=== PATIENT | female | born 1930 | race Caucasian/White ===

== ENCOUNTER 2017-11-25 10:15 | Emergency (ER) | payer OTHER, BC ==
[2017-11-25 10:23] VITALS: TEMP 98.6; BMI 22.3
[2017-11-25] MEDS ORDERED: SODIUM CHLORIDE 1,000 ML IV SCH (11:00)
[2017-11-25 11:35] LABS: BASO % 0.4 % (0-2.0); EOS % 0.8 % (0-4.5); HEMATOCRIT 40.6 % (32.4-45.2); HEMOGLOBIN 13.4 GM/dL (10.7-15.3); LYMPH % 21.9 % (8-40); MCH 29.4 pg (25.7-33.7); MCHC 33.1 g/dl (32.0-36.0); MEAN CELL VOLUME 88.8 fl (80-96); MEAN PLT VOLUME 7.8 fl (7.5-11.1); MONO % 8.3 % (3.8-10.2); NEUT % 68.6 % (42.8-82.8); PLATELET COUNT 231 K/MM3 (134-434); RBC 4.57 M/mm3 (3.60-5.2); RDW 15.2 % (11.6-15.6); WHITE BLOOD COUNT 6.4 K/mm3 (4.0-10.0)
[2017-11-25 11:49] LABS: INR 1.12 (0.82-1.09); PROTHROMBIN TIME (PATIENT) 12.6 SEC (9.7-13.0)
[2017-11-25 11:57] LABS: ALBUMIN 3.8 g/dl (3.4-5.0); ANION GAP 7 (8-16); BILIRUBIN,TOTAL 0.8 mg/dL (0.2-1.0); BLOOD UREA NITROGEN 15 mg/dL (7-18); CALCIUM 8.8 mg/dL (8.5-10.1); CHLORIDE 106 mmol/L (98-107); CHOLESTEROL 180 mg/dL (50-200); CO2 28 mmol/L (21-32); CREATININE 0.8 mg/dL (0.55-1.02); GLUCOSE,RANDOM 91 mg/dL (74-106); SGOT/AST 20 U/L (15-37); SGPT/ALT 16 U/L (12-78); SODIUM 141 mmol/L (136-145); TOT PROT 7.4 g/dl (6.4-8.2); TRIGLYCERIDES 65 mg/dL (35-160)
[2017-11-25 11:58] LABS: URINE APPEARANCE CLEAR; URINE BILIRUBIN NEGATIVE (<2.0 mg/dL); URINE COLOR STRAW; URINE GLUCOSE (UA) NEGATIVE (NEGATIVE); URINE KETONE TRACE (NEGATIVE); URINE NITRITE NEGATIVE (NEGATIVE); URINE PROTEIN NEGATIVE (NEGATIVE); URINE UROBILINOGEN NEGATIVE mg/dL (0.2-1.0)
[2017-11-25 11:59] LABS: ALK PHOS 71 U/L (45-117); HDL CHOLESTEROL 82 mg/dL (40-60)
[2017-11-25 12:01] LABS: URINE LEUK ESTERASE 1+ (NEGATIVE)
[2017-11-25 12:02] LABS: EPI CELLS RARE /HPF (FEW); URINE MUCUS RARE
--- NOTE | 2017-11-25 12:12 | PDOC ---
Attending Attestation - Resident Resident Name: Ryan Ruiz - ED Attending Attestation I have performed the following: I have examined & evaluated the patient, The case was reviewed & discussed with the resident, I agree w/resident's findings & plan - HPI HPI: 11/25/17 12:06 87y/o F h/o HTN, afib on eliquis, cervical stenosis, frontal CVA 2016 presents sent from [facility] for stroke workup after developed b/l arm tingling yesterday at 8pm. no headache/vomiting/vision/speech/gait deficit. sent for MRI and stroke evaluation noted elevated BP as high as 200 and was taking additional doses of her amlodipine. - Physicial Exam PE: 11/25/17 12:11 elevated BP, otherwise well appearing and ambulating steadily speaking full sentences neck supple, no focal ttp s1s2 regular to auscultation 5/5 motor x4, fnf intact, gait steady - Medical Decision Making 11/25/17 12:51 Patient seen and evaluated with the resident. I agree with the overall evaluation, assessment, and management with the following summary of visit: 87-year-old female with gradual/progressive bilateral arm tingling since last night at 8 PM occurring in the setting of elevated blood pressures, no speech/ vision/focal deficits/weakness. Patient was referred to the emergency department for evaluation of stroke, but her presentation is more consistent with cervical stenosis, less consistent with the elevated blood pressures. Stroke protocol was initiated CT head showed no acute pathologies Labs are within normal limits including troponin Control blood pressure Dispo with Dr. Smith, her PCP, and Dr. Smart, her daughter. 11/25/17 14:29 labs/CT wnl. clinically unchanged. Given presentation more consistent with central stenosis and not [employer] pathology, Drs. Smart and Sarah agree pt can be discharged and f/u for outpt MRI. Heart Score/ECG Review #1 ECG reviewed & interpreted by me at: 11:31 General ECG Interpretation: Sinus Rhythm, Normal Rate (65), Normal Intervals ( qtc 474), No acute ischemic changes
--- NOTE | 2017-11-25 12:55 | PDOC ---
History of Present Illness - General Chief Complaint: Head/Neck problem Stated Complaint: NUMBNESS TO UPPER EXTREMITIES Time Seen by Provider: 11/25/17 10:53 History Source: Patient Exam Limitations: No Limitations - History of Present Illness Initial Comments: 11/25/17 12:49 The patient is an 87F with a PMH of c-spine stenosis, a-fib on eliquis, HTN, who presents to the ER after having acutely worsening numbness in her arms bilaterally. The patient states she's had progressively worsening numbness in her arms. She went to an urgent care who became concerned for a stroke. She complains only of worsening numbness in her arms bilaterally. She denies fever, chills, nausea, vomiting, CP, SOB. tPA Exclusion checklist 3-4.5h - Time Elapsed Date last known well: 11/24/17 Time last known well: 20:00 Elaspsed time: Day(s) and 17 Hour(s) and 57 Minutes - Thrombolytic Therapy Candidate Is patient eligible for thrombolytic therapy: No - Ineligibility reason(s) Reasons No tPA given: Outside of window - delayed arrival, See reason(s) noted above (Symptoms not related to intracranial thrombotic infarct) NIH Stroke Scale - Last Known Well Date/Time & Onset Date Last Known Well: 11/24/17 Time Last Known Well: 20:00 - Initial Evaluation Level of consciousness: Alert Ask patient the month and their age: Answers both correctly Ask patient to open & close eyes; make fist and let go: Obeys both correctly Best gaze (horizontal eye movement): Normal Visual field testing: No visual field loss Facial paresis (Show teeth/raise eyebrows/close eyes tight): Normal symmetrical movement Motor Function: Left Arm: Normal Motor Function: Right Arm: Normal (extends arm 90 (or 45) degrees for 10 seconds without drift Motor Function: Left Leg: Normal (extends leg 30 degrees for 5 seconds without drift) Motor Function: Right Leg: Normal (extends leg 30 degrees for 5 seconds without drift) Limb Ataxia: No ataxia Sensory(Use pinprick test arms,legs,trunk,face/side to side): Normal Best language (Describe picture, name items, read sentences): No Aphasia Dysarthria (read several words): Normal articulation Extinction and Inattention: No abnormality - Total Score NIH Stroke Scale Score: 0 Past History - Past Medical History Allergies/Adverse Reactions: Allergies Allergy/AdvReac Type Severity Reaction Status Date / Time No Known Allergies Allergy Verified 11/25/17 10:17 Home Medications: Ambulatory Orders Methimazole [Tapazole -] 2.5 mg PO DAILY 05/20/16 Propranolol HCl [Inderal LA] 80 mg PO DAILY 06/05/16 Apixaban [Eliquis] 2.5 mg PO BID #0 06/06/16 Amlodipine Besylate 2.5 mg PO DAILY 11/25/17 Diltiazem Cd [Cardizem Cd -] 180 mg PO DAILY 11/25/17 Escitalopram Oxalate [Lexapro -] 10 mg PO DAILY 11/25/17 Flecainide Acetate [Tambacor -] 50 mg PO BID 11/25/17 Gentamicin Sulfate [Gentak] 5 ml OP ASDIR 11/25/17 Rosuvastatin Calcium [Crestor] 10 mg PO DAILY 11/25/17 Anemia: No Asthma: No Cancer: Yes (lung) Cardiac Disorders: (PAROXYSMAL AFIB, cardioversion) CVA: Yes COPD: No CHF: No DVT: No Dementia: No Diabetes: No GI Disorders: Yes (sbo diverticulitis) Disorders: No HTN: Yes Hypercholesterolemia: No Liver Disease: No Seizures: No Thyroid Disease: Yes (hyperthyroid) Other medical history: spinal stenosis, - Surgical History Abdominal Surgery: Yes (perforated duodenum) Appendectomy: No Cardiac Surgery: No Cholecystectomy: No Lung Surgery: Yes (lll resection) Neurologic Surgery: No Orthopedic Surgery: No - Suicide/Smoking/Psychosocial Hx Smoking Status: No Smoking History: Former smoker Have you smoked in the past 12 months: No Number of Cigarettes Smoked Daily: 0 Information on smoking cessation initiated: No Hx Alcohol Use: No Drug/Substance Use Hx: No Substance Use Type: None Review of Systems - Review of Systems Able to Perform ROS?: Yes Comments:: 11/25/17 12:55 GENERAL/CONSTITUTIONAL: No fever or chills. No weakness. HEAD, EYES, EARS, NOSE AND THROAT: No change in vision. No ear pain or discharge. No sore throat. CARDIOVASCULAR: No chest pain, palpitations, or lightheadedness. RESPIRATORY: No cough, wheezing, shortness of breath, or hemoptysis. GASTROINTESTINAL: No nausea, vomiting, diarrhea, constipation, or abdominal pain. GENITOURINARY: No dysuria, frequency, hematuria, or change in urination. MUSCULOSKELETAL: No joint or muscle swelling or pain. No neck or back pain. SKIN: No rash or lesions. NEUROLOGIC: Positive for numbness in UE b/l. No headache, tingling, weakness, loss of consciousness, or change in strength/sensation. ENDOCRINE: No increased thirst. No abnormal weight change. HEMATOLOGIC/LYMPHATIC: No anemia, easy bleeding, or history of blood clots. ALLERGIC/IMMUNOLOGIC: No hives or skin allergy. Is the patient limited Prydeinig proficient: No *Physical Exam - Vital Signs Last Vital Signs Temp Pulse Resp BP Pulse Ox 98.6 F 74 18 190/97 97 11/25/17 10:19 11/25/17 10:19 11/25/17 10:19 11/25/17 10:19 11/25/17 11:22 - Physical Exam Comments: 11/25/17 12:57 GENERAL: Well developed, well nourished. Awake and alert. No acute distress. HEENT: Normocephalic, atraumatic. Hearing grossly normal. Moist mucous membranes. PERRLA, EOMI. No conjunctival pallor. Sclera are non-icteric. Oropharynx is clear. NECK: Supple. Full ROM. CARDIOVASCULAR: Regular rate and rhythm. No murmurs, rubs, or gallops. PULMONARY: No evidence of respiratory distress. Lungs clear to auscultation bilaterally. No wheezing, rales or rhonchi. ABDOMINAL: Soft. Non-tender. Non-distended. No rebound or guarding. MUSCULOSKELETAL: Normal range of motion at all joints. No bony deformities or tenderness. EXTREMITIES: No cyanosis. No clubbing. No edema. No calf tenderness or swelling. SKIN: Warm and dry. Normal capillary refill. No rashes. No jaundice. NEUROLOGICAL: Alert, awake, appropriate. Cranial nerves 2-12 intact. No deficits to light touch and temperature in face, upper extremities and lower extremities. No motor deficits in the in face, upper extremities and lower extremities. Normal speech. PSYCHIATRIC: Cooperative. Good eye contact. Appropriate mood and affect. ED Treatment Course - LABORATORY CBC & Chemistry Diagram: 11/25/17 11:10 11/25/17 11:10 - ADDITIONAL ORDERS Additional order review: Laboratory Results 11/25/17 11/25/17 11/25/17 11:32 11:10 11:10 PT with INR INR Sodium 141 Potassium 4.0 Chloride 106 Carbon Dioxide 28 Anion Gap 7 L BUN 15 Creatinine 0.8 Creat Clearance w eGFR > 60 Random Glucose 91 Calcium 8.8 Total Bilirubin 0.8 D AST 20 ALT 16 Alkaline Phosphatase 71 Creatine Kinase 68 Troponin I < 0.02 Total Protein 7.4 Albumin 3.8 Triglycerides 65 Cholesterol 180 Total LDL Cholesterol 90 HDL Cholesterol 82 H Urine Color Straw Urine Appearance Clear Urine pH 8.0 D Ur Specific Am[place] 1.010 Urine Protein Negative Urine Glucose (UA) Negative Urine Ketones Trace H Urine Blood Negative Urine Nitrite Negative Urine Bilirubin Negative Urine Urobilinogen Negative Ur Leukocyte Esterase 1+ H Urine WBC (Auto) 5 Urine RBC (Auto) 1 Ur Epithelial Cells Rare Urine Mucus Rare Blood Type A POSITIVE Antibody Screen Negative 11/25/17 11:10 PT with INR 12.60 INR 1.12 Sodium Potassium Chloride Carbon Dioxide Anion Gap BUN Creatinine Creat Clearance w eGFR Random Glucose Calcium Total Bilirubin AST ALT Alkaline Phosphatase Creatine Kinase Troponin I Total Protein Albumin Triglycerides Cholesterol Total LDL Cholesterol HDL Cholesterol Urine Color Urine Appearance Urine pH Ur Specific [place] Urine Protein Urine Glucose (UA) Urine Ketones Urine Blood Urine Nitrite Urine Bilirubin Urine Urobilinogen Ur Leukocyte Esterase Urine WBC (Auto) Urine RBC (Auto) Ur Epithelial Cells Urine Mucus Blood Type Antibody Screen 11/25/17 11:10 RBC 4.57 MCV 88.8 MCHC 33.1 RDW 15.2 MPV 7.8 D Neutrophils % 68.6 Lymphocytes % 21.9 D Monocytes % 8.3 Eosinophils % 0.8 Basophils % 0.4 - RADIOLOGY Radiology Studies Ordered: Category Date Time Status HEAD CT (STROKE) [CT] Stat CT Scan 11/25/17 12:00 Completed Medical Decision Making - Medical Decision Making 11/25/17 12:58 The patient is an 87F with a PMH of c-spine stenosis and a-fib on eliquis who presents to the ER with worsening numbness in her UE b/l. This is not consistent with a TIA/CVA. This is likely 2/2 to worsening c-spine stenosis. Will discuss with Dr. Smith and Dr. Smart. 11/25/17 13:57 I have spoken with Dr. Smart who will find the patient an outpatient neurology appointment. Dr. Smith agrees with this and will f/u this week with the patient. Pt agrees with this plan. All labs negative. *DC/Admit/Observation/Transfer Diagnosis at time of Disposition: Arm numbness - Discharge Dispostion Disposition: HOME Condition at time of disposition: Stable Decision to Admit order: No - Referrals Referrals: Homa Smart MD [Primary Care Provider] - Slime Smith [Staff Physician] - - Patient Instructions Printed Discharge Instructions: Spinal Stenosis Additional Instructions: Please follow up with your primary care physician in 2-3 days. Please also follow up with the neurologist as well. Please return to the ER if you have any signs or symptoms of chest pain, shortness of breath, uncontrollable fever, chills, nausea, vomiting, numbness, tingling, or weakness in any part of your body, changes in vision, or slurred speech. Please return to the ER if symptoms persist, worsen, or new symptoms arise. - Post Discharge Activity
[2017-11-25 14:06] VITALS: BP 137/83; PULSE 71
[2017-11-25] MEDS ORDERED: ACETAMINOPHEN 325 MG TABLET (FP) PO ONE (14:06)
[2017-11-25] MEDS ORDERED: ACETAMINOPHEN 325 MG TABLET (FP) ONE (14:07)
--- NOTE | 2017-11-26 09:39 | EKG ---
Test Reason : Blood Pressure : / mmHG Vent. Rate : 065 BPM Atrial Rate : 065 BPM P-R Int : 170 ms QRS Dur : 086 ms QT Int : 456 ms P-R-T Axes : 075 -17 027 degrees QTc Int : 474 ms NORMAL SINUS RHYTHM T WAVE ABNORMALITY, CONSIDER ANTERIOR ISCHEMIA ABNORMAL ECG WHEN COMPARED WITH ECG OF 21-MAY-2016 09:20, NO SIGNIFICANT CHANGE WAS FOUND Confirmed by DC DANIEL, LORENZO ([id number]) on 11/26/2017 9:39:05 AM Referred By: Confirmed By:LORENZO IRWIN MD
== END 2017-11-25 14:37 | disposition home or self-care (01) ==
LOC: JER 10:15
PROC: 3E0337Z Introduction of Electrolytic and Water Balance Substance into Peripheral Vein, Percutaneous Approach (ICD-10-PCS; principal; 2017-11-25)
DX: R20.2 Paresthesia of skin (principal); I48.0 Paroxysmal atrial fibrillation; Z79.01 Long term (current) use of anticoagulants; I10 Essential (primary) hypertension; E05.90 Thyrotoxicosis, unspecified without thyrotoxic crisis or storm; Z86.73 Personal history of transient ischemic attack (TIA), and cerebral infarction without residual deficits
CPT/HCPCS: 36415; 70450-TC; 80053; 81003; 81015; 82465; 82550; 83718; 83721; 84478; 84484; 85025; 85610; 86850; 86900; 86901; 87086; 93005; 93010; 96360; 96361; 99284-25; J7030